=== PATIENT | female | born 1970 | race African-American/Black ===

== ENCOUNTER 2017-06-01 09:11 | Emergency (ER) | payer BC ==
[~2017-06-01] VITALS: Ht 182.9 cm; Wt 77.1 kg
[2017-06-01 09:21] VITALS: BP 125/87
[2017-06-01] MEDS ORDERED: AMOXICILLIN 50500 MG PO (09:24)
[2017-06-01] MEDS ORDERED: BIRTH CONTROL (09:25)
[2017-06-01] MEDS ORDERED: FLAGYL500 MG PO (09:38)
== END 2017-06-01 09:43 | disposition home or self-care (01) ==
LOC: M.ERS 09:11
DX: R19.7 Diarrhea, unspecified (principal)